=== PATIENT | female | born 1945 | race Caucasian/White ===

== ENCOUNTER → 2023-07-28 08:55 | Outpatient (REF) | payer MEDICARE, OTHER, SELFPAY ==
[2023-07-28 09:31] LABS: % Basophils 0.9 % (0-2); % Eosinophils 4.1 % (0-6); % Immature Granulocytes 0.3 % (0-0.5); % Lymphocytes 22.7 % (20.5-51.1); % Monocytes 7.5 % (1.7-9.3); % Neutrophils 64.5 % (42.2-75.2); Absolute Basophils 0.1 10^3/uL (0-0.2); Absolute Eosinophils 0.3 10^3/uL (0-0.7); Absolute Lymphocytes 1.6 10^3/uL (1.2-3.4); Absolute Monocytes 0.5 10^3/uL (0.1-0.6); Absolute Neutrophils 4.6 10^3/uL (1.4-6.5); Hematocrit 40.3 % (37.0-47.0); Hemoglobin 13.6 g/dL (12.0-16.0); Mean Corp Hgb Conc. 33.7 g/dL (33.0-37.0); Mean Corpuscular Hgb 31.6 pg (27.0-31.0); Mean Corpuscular Volume 93.5 fL (81.0-99.0); Mean Platelet Volume 8.7 fL (7.4-10.4); Nucleated Red Blood Cells % 0 %; Platelet Count 294 10^3/uL (130-400); Red Blood Cell Count 4.31 10^6/uL (4.20-5.40); White Blood Cell Count 7.1 10^3/uL (4.8-10.8)
[2023-07-28 09:54] LABS: ALT (SGPT) 27 U/L (0-35); AST (SGOT) 27 U/L (14-36); Alkaline Phosphatase 66 U/L (38-126); Blood Urea Nitrogen 10 mg/dl (7-17); Calcium 9.5 mg/dl (8.4-10.2); Carbon Dioxide 31 mmol/L (22-30); Chloride 102 mmol/L (98-107); Glucose 97 mg/dl (70-99); Potassium 4.3 mmol/L (3.5-5.1); Sodium 140 mmol/L (135-145); Total Bilirubin 0.9 mg/dl (0.2-1.3); Total Protein 6.6 g/dl (6.3-8.2); eGFR > 60.00
== END ==
LOC: REG 08:55
PROVIDERS: ATTENDING PHYSICIAN Internal Medicine Cardiovascular Disease
DX: R07.9 Chest pain, unspecified (principal); R06.09 Other forms of dyspnea
CPT/HCPCS: 36415; 80053; 85025

== ENCOUNTER 2023-08-02 06:48 | Day surgery (SDC) | payer MEDICARE, OTHER, SELFPAY ==
[2023-08-02] VITALS (14 sets, daily range): BP systolic 70–151; BP diastolic 56–93; BMI 24.5
[2023-08-02] MEDS: NSS 194 ML IV (07:13)
[2023-08-02 08:09] LABS: ACT-LR - POC 390 Seconds (116-155)
--- NOTE | 2023-08-02 08:34 | ITS.CL.CATH ---
Meeting Facilitator - Catheterization
Cardiac Catheterization
Procedure Report:
CARDIAC CATHETERIZATION REPORT
Date of Procedure: 08/02/2023
Referring: Adonay Stovall M.D.
INDICATION: Dyspnea on exertion, abnormal stress test.
PROCEDURE:
1. Left heart catheterization.
2. Coronary angiography.
3. IFR of the right coronary artery.
ACCESS:
6 [place] right radial artery.
CATHETERS:
1. 5 [place] JR4.
2. 5 [place] JL 3.5.
3. 6 [place] JR4 guide.
HEMODYNAMIC DATA
Weight (kg): 64.7
AO (s/d/x, mmHg): 119/73/96
LV (s/x mmHg): 122/10
LEFT VENTRICULOGRAPHY: Not performed.
CORONARY ANGIOGRAPHY
Dominance: Codominant.
Left Main: Short, normal diameter, bifurcating vessel. There is no coronary artery disease.
LAD: Normal size vessel giving rise to 1 significant diagonal. The mid and distal vessel is severely tortuous. There is no coronary artery disease.
Ramus: Congenitally absent.
Circumflex: Normal size, codominant vessel giving rise to 1 significant marginal before terminating as a partial LPDA. The distal marginal is severely tortuous.
RCA: Normal size, codominant vessel. There is a 30-40% lesion in the proximal vessel.
INTERVENTION(S)
1. Successful IFR of the 40% proximal RCA lesion, demonstrating nonocclusive disease (IFR = 1.0).
Narrative:
The decision was made to perform physiologic testing. The diagnostic catheter was removed over a wire and exchanged for a(n) 6 [place] JR4 guiding catheter. The guiding catheter was advanced into the ascending aorta and seated in the right coronary
artery. Additional heparin was given to obtain an ACT greater than 250 seconds. An iFR wire was zeroed outside of the body, then inserted into the guiding sheath. The wire was advanced and the transducer was normalized just outside of the guiding
catheter tip. The wire was advanced into the distal RCA. Three iFR measurements were taken. The lesion was determined to be nonocclusive (1.0).
Closure Device: Vascular band.
Radiation (mGy): 228.00
DAP (cm2.Gy): 19.1422
Fluoroscopy time (minutes): 3.4
Sedation time (minutes): 34
CONCLUSIONS
1. Codominant circulation with severely tortuous distal LAD and obtuse marginal and nonocclusive 30-40% proximal RCA lesion (IFR = 1.0).
2. Normal filling pressures (LVEDP = 10 mmHg at 64.7 kg).
3. Notable T wave inversions with injection of the left system. Possible endothelial dysfunction.
RECOMMENDATIONS:
1. Expectant management after cardiac catheterization via right radial approach.
2. Limited weight bearing on the right wrist for one week.
3. Primary prevention with high-dose, high potency statin.
4. Continue aspirin 81 mg daily.
5. No obvious culprit for symptoms of dyspnea. Consider primary pulmonary disease versus deconditioning versus endothelial dysfunction.
6. Stable for outpatient follow-up.
Copy to: Adonay Stovall M.D., Justina Rapp M.D.
Mike Marcelo DO, FACC, FACP
[2023-08-02] MEDS: NSS 1000 IV (11:13)
== END 2023-08-02 12:14 | disposition home or self-care (01) ==
LOC: CATH 06:48
PROVIDERS: ATTENDING PHYSICIAN Internal Medicine Cardiovascular Disease; FAMILY PHYSICIAN Internal Medicine; OTHER PHYSICIAN Internal Medicine Cardiovascular Disease
DX: I25.10 Atherosclerotic heart disease of native coronary artery without angina pectoris (principal); R06.09 Other forms of dyspnea; R94.39 Abnormal result of other cardiovascular function study
CPT/HCPCS: 85347; 93458; 93571; C1769; C1894; Q9967

== ENCOUNTER → 2023-10-19 07:48 | Outpatient (REF) | payer MEDICARE, OTHER, SELFPAY ==
[2023-10-19 08:57] LABS: ALT (SGPT) 42 U/L (0-35); AST (SGOT) 32 U/L (14-36); HDL Cholesterol 78 mg/dl; LDL Cholesterol, Calculated 65 mg/dl; Total Cholesterol 160 mg/dl (50-199); Triglyceride 87 mg/dl (10-149); Very Low Density Lipoprotein 17 mg/dl (0-30)
== END ==
LOC: REG 07:48
PROVIDERS: ATTENDING PHYSICIAN Nurse Practitioner Gerontology
DX: E78.00 Pure hypercholesterolemia, unspecified (principal)
CPT/HCPCS: 36415; 80061; 84450; 84460

== ENCOUNTER → 2024-06-04 16:54 | Outpatient (REF) | payer MEDICARE, OTHER, SELFPAY | LOC: WDC 16:54 | PROVIDERS: ATTENDING PHYSICIAN Obstetrics & Gynecology Gynecology; FAMILY PHYSICIAN Physician Assistant Medical | DX: Z12.31 Encounter for screening mammogram for malignant neoplasm of breast (principal); Z01.419 Encounter for gynecological examination (general) (routine) without abnormal findings | CPT/HCPCS: 77063; 77067 ==

== ENCOUNTER → 2024-11-14 07:36 | Outpatient (REF) | payer MEDICARE, OTHER, SELFPAY ==
[2024-11-14 08:40] LABS: % Basophils 0.9 % (0-2); % Eosinophils 3.8 % (0-6); % Immature Granulocytes 0.2 % (0-0.5); % Neutrophils 64.1 % (42.2-75.2); Absolute Basophils 0.1 10^3/uL (0-0.2); Absolute Eosinophils 0.2 10^3/uL (0-0.7); Absolute Lymphocytes 1.3 10^3/uL (1.2-3.4); Absolute Monocytes 0.5 10^3/uL (0.1-0.6); Absolute Neutrophils 3.7 10^3/uL (1.4-6.5); Hematocrit 42.6 % (37.0-47.0); Hemoglobin 14.2 g/dL (12.0-16.0); Mean Corp Hgb Conc. 33.3 g/dL (33.0-37.0); Mean Corpuscular Hgb 32.1 pg (27.0-31.0); Mean Corpuscular Volume 96.2 fL (81.0-99.0); Mean Platelet Volume 9.1 fL (7.4-10.4); Nucleated Red Blood Cells % 0 %; Platelet Count 299 10^3/uL (130-400); Red Blood Cell Count 4.43 10^6/uL (4.20-5.40); Red Cell Dist. Width 12.4 % (11.5-14.5); White Blood Cell Count 5.8 10^3/uL (4.8-10.8)
[2024-11-14 09:51] LABS: ALT (SGPT) 28 U/L (0-35); AST (SGOT) 27 U/L (14-36); Albumin 4.4 g/dl (3.5-5.0); Alkaline Phosphatase 56 U/L (38-126); Blood Urea Nitrogen 11 mg/dl (7-17); Calcium 9.5 mg/dl (8.4-10.2); Carbon Dioxide 29 mmol/L (22-30); Chloride 108 mmol/L (98-107); Glucose 88 mg/dl (70-99); HDL Cholesterol 76 mg/dl; LDL Cholesterol, Calculated 63 mg/dl; Potassium 4.4 mmol/L (3.5-5.1); Sodium 144 mmol/L (135-145); Total Bilirubin 0.7 mg/dl (0.2-1.3); Total Cholesterol 160 mg/dl (50-199); Total Protein 7.1 g/dl (6.3-8.2); Triglyceride 107 mg/dl (10-149); Very Low Density Lipoprotein 21 mg/dl (0-30); eGFR > 60.00
[2024-11-14 10:22] LABS: TSH 2.59 uIU/ml (0.47-4.68)
== END ==
LOC: REG 07:36
PROVIDERS: ATTENDING PHYSICIAN Physician Assistant Medical
DX: Z00.00 Encounter for general adult medical examination without abnormal findings (principal); E78.2 Mixed hyperlipidemia
CPT/HCPCS: 36415; 80053; 80061; 84443; 85025

== ENCOUNTER → 2024-12-06 10:03 | Outpatient (REF) | payer MEDICARE, OTHER, SELFPAY | LOC: RAD 10:03 | PROVIDERS: ATTENDING PHYSICIAN Physician Assistant Medical | DX: E07.89 Other specified disorders of thyroid (principal) | CPT/HCPCS: 76536 ==